=== PATIENT | male | born 1965 | race Caucasian/White ===

== ENCOUNTER 2017-04-05 07:21 | Emergency (ER) | payer OTHER ==
--- NOTE | 2017-04-05 07:53 | ERNOTE ---
<Fernando Ravi - Last Filed: 04/05/17 09:38> Back Pain ER HPI Date of Service: 04/05/17 Presenting Symptoms: injury/pain to back, hx chronic back pain Time Seen by Provider: 04/05/17 07:25 Source: patient, family Exam Limitations: no limitations Immunizations: IMMUNIZATION HX Immunizations Up to Date Yes History of Influenza Vaccine No Hx Pneumococcal Vaccination No Allergies/Adverse Reactions: Allergies meperidine HCl [From Demerol] Allergy (Severe, Verified 04/05/17 07:28) seizures hydrocodone Adverse Reaction (Unknown, Verified 04/05/17 07:28) oxycodone HCl [From Percocet] Adverse Reaction (Unknown, Verified 04/05/17 07:28 ) Home Medications: HOME MEDICATIONS Simvastatin [Zocor] 10 mg PO HS 10/01/13 [Last Taken 07/03/14] Verapamil HCl [Verapamil ER] 90 mg PO DAILY 10/01/13 [Last Taken 07/03/14] Frovatriptan Succinate [Frova] 2.5 mg PO DAILY PRN 06/26/14 [Last Taken 07/03/14 ] LORazepam [Ativan] 0.5 mg PO TID PRN 06/26/14 [Last Taken 06/26/14 22:00] Aspirin 81 mg PO DAILY #30 tab.chew 07/10/15 [Last Taken Unknown] Nitroglycerin [Nitrostat] 0.4 mg SL Q5MIN PRN #50 tab 07/16/15 [Last Taken Unknown] Ondansetron [Zofran Odt] 4 mg PO Q6H PRN #30 tab 04/05/17 [Last Taken Unknown] Tramadol HCl [Rybix Odt] 50 mg PO QID #30 tab.rapdis 04/05/17 [Last Taken Unknown] Narrative: patient woke up this am with low back pain and tingling, has had similair episode in past Timing: Reports: constant, getting worse Quality/Severity: Reports: moderate, dullness, fullness Location of pain: Reports: lower back Activities at Onset: Reports: sleep Recent Injury?: Reports: no Modifying Factors - (Improves): Reports: nothing Modifying Factors - (Worsens): Reports: movement to right, movement to left, movement flexion Associated Symptoms: Reports: none Review of Systems - Narrative Narrative: past hx unremarkable - Review of Systems Constitutional: Present: See HPI, weakness, fatigue, malaise EYE: Present: no symptoms reported ENT: Present: no symptoms reported Respiratory: Present: no symptoms reported Cardiology: Present: no symptoms reported Gastrointestinal/Abdominal: Present: nausea Genitourinary: Present: no symptoms reported Musculoskeletal: Present: back pain, muscle pain, muscle stiffness Skin: Present: no symptoms reported Neurological: Present: no symptoms reported Endocrine: Present: no symptoms reported Hematologic/Lymphatic: Present: no symptoms reported Psych: Present: no symptoms reported All Other Systems: All systems neg except as marked - Narrative Narrative: unremarkable - Family History Family History:: no untoward family reactions to anesthesia, no familial bleeding tendencies, no family history of clotting disorders, no family history of premature - Family History Mother Family History - Cardiac/Respiratory: No pertinent hx Family History - Cancer: No pertinent family hx - Social History Does anyone smoke in the home?: No Smoking Status: Former smoker Have you smoked in the past 12 months: No Do you dip or chew tobacco: No Physical Exam - Physical Exam Narrative: patient appears in moderate distress General Appearance: Present: moderate distress Head Exam: Present: normal inspection, no evidence of injury Eye Exam: Normal inspection: bilateral, PERRL: bilateral, EOMI: bilateral Ears, Nose, Throat: Present: normal ENT inspection Neck: Present: normal inspection, nontender Respiratory: Present: no respiratory distress, normal breath sounds, no accessory muscle use, chest nontender, lungs clear Cardiovascular/Chest: Present: regular rate, rhythm, no murmur, normal peripheral pulses Peripheral Pulses: N=norm/S=strong/W=weak/B=bound/A=absent: Carotid (R): Normal , Carotid (L): Normal, Radial (R): Normal, Radial (L): Normal, Femoral (R): Normal Gastrointestinal/Abdominal: Present: normal bowel sounds, nontender, nondistended, soft, no organomegaly Back Exam: Present: vertebral tenderness, decreased range of motion, muscle spasm Extremity Exam: Present: normal inspection, non-tender, normal range of motion, no edema Neurological Exam: Present: alert, oriented, normal mood/affect, no motor/ sensory deficits DTR: N=norm/NB=norm/brisk/A=abs/DD=dull/dimin/HC=hyperactive: Bicep (R): Normal , Bicep (L): Normal, Tricep (R): Normal, Tricep (L): Normal, Knee (R): Normal, Knee (L): Normal, Ankle (R): Normal Skin Exam: Present: normal color, warm/dry Lymphatic Exam: Present: no adenopathy ED Progress - Date and Time Seen: Date and Time: 04/05/17 09:39 patient improved, discussed labs and ct, to be dismissed - Results and Orders Patient's Lab Results:: I have reviewed the patient's lab results. - Vital Signs Patient's Vital Signs:: I have reviewed the patient's vital signs. Vital Signs: Vital Signs 04/05/17 07:22 Temperature 36.7 C Pulse Rate 93 Respiratory 14 Rate Blood Pressure 153/83 O2 Sat by Pulse 93 Oximetry - EKG EKG: NSR EKG read: Interp. by me - CT/Ultrasound CT/Ultrasound Narrative: radiologist reports enteritis - Progress/Reassessment Chief Complaint: Back Pain Progress:: Improved - Transfer of Care Expected Disposition: Discharge Plan - Plan Plan: to be discharged Departure Clinical Impression: Enteritis Back pain Qualifiers: Back pain location: back pain in unspecified location - Departure Disposition: Home self-care Condition: Stable Instructions: Rehydration, Adult Prescriptions: Ondansetron [Zofran Odt] 4 mg PO Q6H PRN #30 tab PRN Reason: Nausea Tramadol HCl [Rybix Odt] 50 mg PO QID #30 tab.bubba <Kirill Al - Last Filed: 04/19/17 11:11> Back Pain ER HPI Immunizations: IMMUNIZATION HX Immunizations Up to Date Yes History of Influenza Vaccine No Hx Pneumococcal Vaccination No - Patient's Past Medical History Patient History - Medical: Anxiety, Kidney stone, Other Patient History - Cardiac/Respiratory: Hypertension Patient History - Cancer: No Hx of Cancer Patient History - Surgical Procedures: T & A, Other Patient History - Other: None - Family History Mother Family History - Medical: Father Family History - Cardiac/Respiratory: Hypertension, Hyperlipidemia - Social History Living Situations: home Abuse History: No History of abuse Psych History: Hx of Anxiety Alcohol Use: none Drug Use: none - Immunizations Immunizations Up to Date: Yes Hx Pneumococcal Vaccination: No History of Influenza Vaccine: No ED Progress - Vital Signs Vital Signs: Vital Signs 04/05/17 07:22 Temperature 36.7 C Pulse Rate 93 Respiratory 14 Rate Blood Pressure 153/83 O2 Sat by Pulse 93 Oximetry - X-Ray X-Ray #1 X-Ray: chest Interpretation: Interp. by me, Reviewed by me X-ray Comments: cxr reviewed. - Transfer of Care Physician Sign Out: Fernando Ravi
[2017-04-05 07:59] LABS: Urine Bilirubin Negative (NEGATIVE); Urine Blood Negative /ul (NEGATIVE); Urine Ketone Negative (NEGATIVE); Urine Nitrite Negative (NEGATIVE); Urine Protein Negative (NEGATIVE); Urine Urobilinogen Normal (NORMAL)
[2017-04-05 08:02] LABS: Hemoglobin 16.5 gm/dL (13.5-18.0); Mean Cell Volume 88.8 fl (78-100); Mean Corpuscular Hemoglobin 31.2 pg (27-31); Mean Corpuscular Hgb Conc 35.1 g/dl (32-36); Mean Platelet Volume 9.7 fl (6.0-9.5); Neutrophil # 9.3 K/mm3 (1.3-6.0); Neutrophil % 87.2 % (42-75.0); Platelet Count 221 K/mm3 (150-450); Red Blood Count 5.29 M/mm3 (4.7-6.0); White Blood Count 10.6 K/mm3 (4.0-10.5)
[2017-04-05 08:07] LABS: Prothrombin Time (Patient) 10.3 Seconds (9.0-11.0); Urine Appearance Clear; Urine Bacteria None Seen; Urine Color Dark Yellow; Urine RBC None Seen /hpf (0-5); Urine WBC None Seen /hpf (0-5)
[2017-04-05] MEDS ORDERED: ONDANSETRON HCL/PF 2 MG/ML VIAL ONE (08:11)
[2017-04-05] MEDS ORDERED: ONDANSETRON HCL/PF 2 MG/ML VIAL IV ONE (08:12)
[2017-04-05] MEDS ORDERED: NORMAL SALINE 1,000 ML IV ONE (08:12)
[2017-04-05 08:15] LABS: ALT 77 U/L (19-67); AST 24 U/L (0-48); Albumin * 4.1 gm/dl (3.4-5.0); Alkaline Phosphatase * 101 U/L (50-170); Anion Gap 10.9 mmol/L (6.8-13.8); BUN/Creatinine Ratio 14.8 (9.0-21.6); Bilirubin, Total 0.9 mg/dL (0.0-1.1); Blood Urea Nitrogen 16 mg/dL (6-23); Ca. Corrected For Albumin 7.8 mg/dL (8.4-10.2); Calcium * 8.2 mg/dL (7.9-10.9); Carbon Dioxide 30.4 mmol/L (24-32.6); Chloride 105 mmol/L (97-106); Glucose * 117 mg/dL (70-110); Potassium 4.3 mmol/L (3.4-4.6); Sodium 142 mmol/L (132-142); Total Protein 7.2 gm/dL (6.2-8.2)
[2017-04-05 08:16] LABS: Troponin I Less than 0.017 ng/ml (0.00-0.10)
[2017-04-05 08:18] LABS: INR 1.03 INR (0.90-1.10); Partial Thrombolplastin Time 22.6 Seconds (24-32)
[2017-04-05] MEDS ORDERED: ONDANSETRON 4 MG TAB.RAPDIS PO ONE (10:00)
[2017-04-05] MEDS ORDERED: ONDANSETRON 4 MG TAB.RAPDIS ONE (10:00)
[2017-04-05 10:15] VITALS: BP 135/73
== END 2017-04-05 10:01 | disposition home or self-care (01) ==
LOC: ER 07:21
DX: G89.29 Other chronic pain; Z88.5 Allergy status to narcotic agent; M54.5 Low back pain; F41.9 Anxiety disorder, unspecified; I10 Essential (primary) hypertension; Z87.891 Personal history of nicotine dependence
CPT/HCPCS: 36415; 71045; 74176; 80053; 81001; 84484; 85025; 85610; 85730; 93005; 96374; 99285; J2405